=== PATIENT | male | born 1960 | race African-American/Black ===

== ENCOUNTER 2023-07-12 01:34 | Emergency (ER) | payer SELFPAY ==
[2023-07-12 01:46] VITALS: BP 146/97
[2023-07-12 02:06] LABS: % Eosinophils 1.6 % (0-6); % Immature Granulocytes 0.3 % (0-0.5); % Lymphocytes 23.8 % (20.5-51.1); % Monocytes 11.1 % (1.7-9.3); % Neutrophils 62.2 % (42.2-75.2); Absolute Basophils 0.1 10^3/uL (0-0.2); Absolute Eosinophils 0.1 10^3/uL (0-0.7); Absolute Lymphocytes 1.8 10^3/uL (1.2-3.4); Absolute Monocytes 0.8 10^3/uL (0.1-0.6); Absolute Neutrophils 4.6 10^3/uL (1.4-6.5); Hematocrit 40.2 % (39.0-52.0); Hemoglobin 13.6 g/dL (13.0-18.0); Mean Corp Hgb Conc. 33.8 g/dL (33.0-37.0); Mean Corpuscular Hgb 27.2 pg (27.0-31.0); Mean Corpuscular Volume 80.4 fL (80.0-94.0); Mean Platelet Volume 10.3 fL (7.4-10.4); Nucleated Red Blood Cells % 0 % (-); Platelet Count 243 10^3/uL (130-400); Red Cell Dist. Width 13.3 % (11.5-14.5); White Blood Cell Count 7.4 10^3/uL (4.8-10.8)
[2023-07-12 02:18] LABS: Amphetamines Negative (Negative); Barbiturates Negative (Negative); Benzodiazepines Negative (Negative); Buprenorphine Negative (Negative); Cocaine Negative (Negative); Marijuana Negative (Negative); Methadone Negative (Negative); Methamphetamines Negative (Negative); Opiates Negative (Negative); Phencyclidine Negative (Negative); Tricyclic Antidepressants Negative (Negative)
[2023-07-12 02:40] LABS: ALT (SGPT) 23 U/L (0-50); AST (SGOT) 34 U/L (17-59); Albumin 3.5 g/dl (3.5-5.0); Alkaline Phosphatase 72 U/L (38-126); Blood Urea Nitrogen 11 mg/dl (9-20); Calcium 9.7 mg/dl (8.4-10.2); Carbon Dioxide 27 mmol/L (22-30); Chloride 103 mmol/L (98-107); Glucose 188 mg/dl (70-99); Potassium 3.5 mmol/L (3.5-5.1); Sodium 140 mmol/L (135-145); Total Protein 6.8 g/dl (6.3-8.2); eGFR > 60.00
[2023-07-12 03:58] VITALS: BP 157/90; BMI 29.9
--- NOTE | 2023-07-12 05:50 | ED.GENMED ---
History of Present Illness
General
Chief Complaint: Crisis Evaluation
Source: patient
Time Seen by Provider: 07/12/23 05:27
Travel History
Have you had any contact with someone who has COVID-19?: No
Do you have any symptoms of coronavirus? Fever > 100 degrees, chills, cough, shortness of breath, sore throat, loss of taste or smell, muscle aches, or headache?: No
History of Present Illness
History of Present Illness:
63-year-old male presents to the emergency room due to suicidal ideations. Patient states he was considering jumping off of a roof to kill himself. However he decided to come to crisis for evaluation. Patient denies any ingestions. He denies
alcohol or drug use.
Phy Exam
Physical Exam
Physical Exam:
General: Awake, Alert, Oriented X3. No acute distress.
Vitals: unremarkable
Head: Atraumatic
Eyes: Pupils equal, EOMI
Throat: Airway intact, no exudates
Neck: Trachea midline
Lungs: Clear and equal b/l
Heart: Regular rate, no murmurs
Abd: Soft, Nontender, No pulsatile mass
Neuro: Nonfocal
Skin: Warm, dry, no rash
Extremities: pulses equal b/l, no edema
Course
Orders/Labs/Results
Orders:
Orders
07/12/23 02:00
Complete Blood Count/With Diff Urgent
Comprehensive Metabolic Panel Urgent
Urine Drug Abuse Screen Urgent
Date Specimen was Collected: 07/12/23
Time Specimen was Collected: 01:53
Abnormal Lab Results
07/12/23
02:00
Absolute Monos (auto) 0.8 H 10^3/uL
(0.1-0.6)
Monocytes % 11.1 H %
(1.7-9.3)
Glucose 188 H mg/dl
(70-99)
Total Bilirubin 2.0 H mg/dl
(0.2-1.3)
07/12/23 02:00
07/12/23 02:00
Vital Signs
Initial and Last Documented VS:
Initial Vital Signs
Temp Pulse Resp BP Pulse Ox
98.2 F 109 20 146/97 97
07/12/23 01:46 07/12/23 01:46 07/12/23 01:46 07/12/23 01:46 07/12/23 01:46
Last Documented Vital Signs
Temp Pulse Resp BP Pulse Ox
98.8 F 78 20 138/88 98
07/12/23 06:13 07/12/23 06:13 07/12/23 06:13 07/12/23 06:13 07/12/23 06:13
MDM/Problems Addressed
Differential Diagnosis Includes:
Suicidal ideations, depression
MDM/Problems Addressed:
Patient medically cleared for psychiatric treatment
*Pulse Oximetry
Patient hypoxic: no
*Critical Care Note
Total Time (30-74mins, 75-104mins- exclusive of procedures): Not Applicable
ED Attending Note
-
Portions of this chart may have been created with voice recognition software.� Occasional wrong word or��sound alike� substitutions may have occurred due to the inherent limitations of voice recognition software.
Discharge Plan
Departure
Patient Disposition: [facility]
Date of Disposition: 07/12/23
Time of Disposition: 05:51
Condition: Fair
Discharge Problem:
Depression, Suicidal ideation
Prescriptions:
No Action
Anxiety Med
1 tab PO HS
quetiapine [Seroquel] 100 MG tablet
100 mg PO HS
Lexapro:
Referrals:
NONE,* [Family Provider] -
Activity Restrictions/Additional Instructions:
Medically cleared for psychiatric treatment
Interventions
Interventions:
*Risk Screen - Suicide Last Done: 07/12/23 03:25
*General Assessment Last Done: 07/12/23 03:58
*Neglect/Abuse Screening Last Done: 07/12/23 03:58
ED- Fall Risk Assessment Last Done: 07/12/23 03:58
*ED COVID-19 Vaccine History Last Done: 07/12/23 03:58
*Nursing Disposition Last Done: 07/12/23 03:25
ED-Psychological Assessment Last Done: 07/12/23 03:58
Discharge Date and Time
Discharge Date/Time: 07/12/23 06:29
[2023-07-12 06:13] VITALS: BP 138/88
== END 2023-07-12 06:29 ==
LOC: EMR 01:34
PROVIDERS: EMERGENCY PHYSICIAN Emergency Medicine
DX: R45.851 Suicidal ideations (principal); F32.A Depression, unspecified; Z02.79 Encounter for issue of other medical certificate
CPT/HCPCS: 99284; 80053; 80306; 85025